=== PATIENT | female | born 1995 | race Caucasian/White ===

== ENCOUNTER 2020-12-13 07:17 | Emergency (ER) | payer OTHER, SELFPAY ==
--- NOTE | ~2020-12-13 | XR_ITS ---
XR chest 1V portable DATE: 12/13/2020 07:44 INDICATION: Shortness of breath, tachycardia TECHNIQUE: Portable AP chest on 12/13/2020 at 0743 hours COMPARISON: 11/28/2015 PA chest FINDINGS: Normal heart size. No hilar or mediastinal enlargement. No pulmonary infiltrate or consolidation, pleural effusion or pulmonary vascular congestion or pneumo thorax. Included skeletal structures are unremarkable. IMPRESSION: No active cardiopulmonary disease Reviewed, dictated and finalized at location A.
[2020-12-13 07:26] VITALS: BP 116/84; PULSE 76; RESP 24; TEMP 36.7; O2SAT 100
--- NOTE | 2020-12-13 07:35 | ECG_ITS ---
Measurements Intervals [place] Rate: 81 P: 52 MT: 153 QRS: 61 QRSD: 94 T: 46 QT: 365 QTc: 425 Interpretive Statements SINUS RHYTHM BASELINE ARTIFACT- II, III, AVR, AVF, V1-V6 NORMAL ECG Electronically Signed On 12-13-2020 8:13:47 CDT by Kris Montiel D.O.
[2020-12-13 08:06] LABS: Basophils Percent Auto 0.4 % (0.2-1.2); Eosinophils Absolute Auto 0.1 K/mm3 (0-0.3); Eosinophils Percent Auto 0.9 % (0-4.4); Hematocrit 40.3 % (37.0-47.0); Hemoglobin 13.4 g/dL (12.0-15.0); Immature Granulocyte Absolute 0.02 K/mm3 (0.00-0.031); Immature Granulocyte Percent A 0.4 % (0-0.5); Lymphocytes Absolute Auto 1.97 K/mm3 (0.9-3.2); Lymphocytes Percent Auto 35.8 % (18.3-44.2); Mean Corpuscular HGB Conc 33.3 g/dl (32-36); Mean Corpuscular Hemoglobin 32.1 pg (26-34); Mean Corpuscular Volume 96.4 fl (80-100); Mean Platelet Volume 10.3 fl (7.4-10.4); Monocytes Absolute Auto 0.4 K/mm3 (0.1-0.6); Monocytes Percent Auto 7.6 % (2.6-8.5); Neutrophils Percent Auto 54.9 % (45.5-73.1); Platelet Count Result 248 k/mm3 (150-375); Red Blood Count 4.18 M/mm3 (4.2-5.4); White Blood Count 5.5 K/mm3 (4.5-10.0)
[2020-12-13 08:15] LABS: Alanine Aminotransferase 17 U/L (4-35); Alkaline Phosphatase 72 U/L (38-126); Anion Gap 12 mmol/L (8-16); Aspartate Amino Transferase 28 U/L (14-36); Bilirubin,Total 0.6 mg/dL (0.2-1.3); Blood Urea Nitrogen 10 mg/dL (7-17); Calcium 9.8 mg/dL (8.4-10.2); Carbon Dioxide 25 mmol/L (22-30); Chloride 103 mmol/L (98-107); Estimated CRCL calculation 77 ml/min; Estimated Glomerular Filt Rate > 60; Glucose 88 mg/dL (65-105); Potassium 3.2 mmol/L (3.4-5.0); Sodium 140 mmol/L (137-145)
[2020-12-13 08:27] VITALS: BP 107/96; PULSE 70; RESP 19; O2SAT 99
[2020-12-13 08:27] LABS: Troponin I < 0.012 ng/mL (0.000-0.034)
[2020-12-13 08:44] LABS: D Dimer 0.24 ug/mL (<0.48)
--- NOTE | 2020-12-13 08:48 | ED.ARRPALP ---
HPI - Arrhythmia/Palpitations General Chief Complaint: Arrhythmia/Palpitations Stated Complaint: SOB Time Seen by Provider: 12/13/20 07:33 Source: patient and RN notes reviewed Mode of arrival: ambulatory Limitations: no limitations History of Present Illness HPI narrative: Patient is 25 years old white female presented to the ED with palpitation, her iWatch showed heart rates running 130-140 at 5:15 AM associated with intermittent shortness of breath. Patient could not sleep last night. On arrival to the emergency room the above symptoms resolved, currently is asymptomatic. Patient on contraceptive pills. Patient does not smoke, drinks occasionally, does not use drugs. Patient reported quite a bit of stress lately. Related Data Home Medications Medication Instructions Recorded Confirmed albuterol sulfate 90 mcg/actuation 1 inhalation INHALATION Q4H 06/20/19 aerosol inhaler Allergies Allergy/AdvReac Type Severity Reaction Status Date / Time Sulfa (Sulfonamide Allergy Unknown Hives Verified 12/13/20 07:35 Antibiotics) Review of Systems Review of Systems: Narrative: CONSTITUTIONAL: Denies fever, chills, or sweats. EYES: Denies visual changes, redness, or discharge. ENT: Denies rhinorrhea, congestion, sore throat, or otalgia. CARDIOVASCULAR: Denies chest pain, palpitations, or edema. RESPIRATORY: Denies cough or dyspnea. GASTROINTESTINAL: Denies abdominal pain, nausea, vomiting, or diarrhea. GENITOURINARY: Denies dysuria or hematuria. SKIN: Denies rash or itching. MUSCULOSKELETAL: Denies back pain, joint pain, or myalgia. NEUROLOGIC: Denies headache, numbness, or weakness. PSYCHIATRIC: Denies anxiety or depression. [facility] Past Medical History Medical History Asthma Surgical History Surgical History History of hernia repair 2017 History of laparoscopic appendectomy 2017 Family History Family History Grandparent Hypertension Family history of elevated blood lipids Family history of cardiovascular disease Social History Social History Smoking status: Never smoker Second hand tobacco smoke exposure: No Alcohol intake: current Gender identity (if verbalized by the patient): Female Exam Narrative: Exam Narrative: General appearance: Well-developed, well-nourished Skin: Normal color Head: Normocephalic, nontraumatic Eyes: Clear conjunctiva ENT: Oropharynx normal, ears normal, nose normal Neck: Supple, nontender Chest and respiratory: Airway patent, no respiratory distress, no accessory muscle use Heart: Regular rate/rhythm Abdomen: Soft, nontender, no organomegaly, quiet bowel sounds Vascular: Normal peripheral pulses, normal capillary refill. Musculoskeletal: Normal range of motion, nontender back Neurologic: Alert and oriented ?3, WEATHER ANCHOR is normal as tested, no gross motor deficit Course Course Emergency Course: Stable Vital Signs Vital signs: Vital Signs Temperature 36.7 C 12/13/20 07:26 Pulse Rate 76 12/13/20 07:26 Respiratory Rate 24 H 12/13/20 07:26 Blood Pressure 116/84 12/13/20 07:26 Pulse Oximetry 100 12/13/20 07:26 Temperature 36.7 C 12/13/20 07:26 Pulse Rate 70 12/13/20 08:27 Respiratory Rate 19 12/13/20 08:27 Blood Pressure 107/96 H 12/13/20 08:27 Pulse Oximetry 99 12/13/20 08:27 MDM - Arrhythmia/Palpitations MDM Narrative Medical decision making narrative: Anxiety-like symptoms is my concern. Differential Diagnosis Differential diagnosis: Likely
[2020-12-13 09:00] VITALS: BP 107/74; PULSE 74; RESP 20; O2SAT 100
== END 2020-12-13 09:02 | disposition home or self-care (01) ==
PROVIDERS: Emergency Provider Emergency Medicine; PCP Family Medicine
DX: F41.9 Anxiety disorder, unspecified (principal); R00.2 Palpitations; J45.909 Unspecified asthma, uncomplicated
CPT/HCPCS: 36415; 71045; 80053; 84484; 85025; 85380; 93005; 99283

== ENCOUNTER 2021-07-04 19:08 | Emergency (ER) | payer OTHER, SELFPAY ==
--- NOTE | ~2021-07-04 | XR_ITS ---
EXAMINATION: XR finger 3rd RT min 2V EXAM DATE: 07/04/2021 19:29 INDICATION: Pain, laceration rt 3rd distal finger , dropped. TECHNIQUE: Right 3rd finger frontal, lateral and oblique projections obtained and reviewed. There is no prior study for comparison. FINDINGS: There are no acute right 3rd finger fractures or dislocations identified. There is no subc utaneous gas. Laceration seen dorsal to the distal phalangeal shaft. There are no radiopaque foreig n bodies. IMPRESSION: Soft tissue laceration. Reviewed, dictated and finalized at location G. ES ASSISTANT IMPRESSION: Soft tissue laceration.
[2021-07-04 19:14] VITALS: BP 123/99; PULSE 73; RESP 16; TEMP 37.1; O2SAT 100
--- NOTE | 2021-07-04 20:09 | ED.GENADULT ---
HPI - General Adult General Chief complaint: Extremity Injury, Upper Stated complaint: Laceration to finger/Right Hand Source: patient Mode of arrival: ambulatory Limitations: no limitations History of Present Illness HPI narrative: Patient presents for evaluation of injury to the third digit of the right hand. She indicates she was at a gym this evening and dropped a weight on the middle finger of her right hand. She now has a laceration to the palmar aspect of the distal phalanx of the third digit of the right hand. Reports some minimal amount of pain in the affected area. Described as throbbing. No paresthesias. No loss of range of motion. Date of last tetanus unknown. She is not diabetic. She does not smoke. No additional complaints or concerns. Related Data Home Medications Medication Instructions Recorded Confirmed albuterol sulfate 90 mcg/actuation 1 inhalation INHALATION Q4H 06/20/19 aerosol inhaler Allergies Allergy/AdvReac Type Severity Reaction Status Date / Time Sulfa (Sulfonamide Allergy Unknown Hives Verified 01/25/21 08:31 Antibiotics) Review of Systems Review of Systems: CONSTITUTIONAL: Denies fever, chills, or sweats. EYES: Denies visual changes, redness, or discharge. ENT: Denies rhinorrhea, congestion, sore throat, or otalgia. CARDIOVASCULAR: Denies chest pain, palpitations, or edema. RESPIRATORY: Denies cough or dyspnea. GASTROINTESTINAL: Denies abdominal pain, nausea, vomiting, or diarrhea. GENITOURINARY: Denies dysuria or hematuria. SKIN: Reports laceration to third digit of right hand MUSCULOSKELETAL: Reports pain in distal phalanx of third digit of right hand NEUROLOGIC: Denies headache, numbness, dizziness, or weakness. PSYCHIATRIC: Denies anxiety or depression. [facility] Past Medical History Medical History Asthma Surgical History Surgical History History of hernia repair 2017 History of laparoscopic appendectomy 2017 Family History Family History Grandparent Hypertension Family history of elevated blood lipids Family history of cardiovascular disease Social History Social History Smoking status: Never smoker Second hand tobacco smoke exposure: No Alcohol intake: current Alcohol use details: social Substance use: never Substance use type: does not use Living arrangements: alone Additional occupation/education comments: RN Gender identity (if verbalized by the patient): Female Sexual Orientation (if Verbalized by the Patient): Straight or Heterosexual Spiritual care concerns: No Exam Narrative: GENERAL: Well-appearing, well-nourished, and in no acute distress. HEAD: Normocephalic, atraumatic. EYES: PERRLA and EOMI. ENT: Nares clear, no rhinorrhea or epistaxis. Mucous membranes moist. Oropharynx without tonsillar hypertrophy exudate or other lesions. Bilateral TMs pearly roldan nonbulging NECK: Supple. No adenopathy or masses. No carotid bruits or JVD CHEST: Clear to auscultation. No respiratory distress. No wheezes rales or rhonchi HEART: Regular rate and rhythm. No murmur heard. Normal peripheral pulses. ABDOMEN: Soft, nontender, nondistended, normal active bowel sounds. EXTREMITIES: Normal range of motion. No edema. Tenderness noted to distal phalanx of third digit of right hand SKIN: Approximately 4 mm linear laceration to the palmar aspect of the distal phalanx of the third digit of the right hand. There is ecchymosis noted to the dorsal aspect of the distal phalanx of the third digit of the right hand.. NEURO: No focal deficits. Alert and oriented x3. PSYCH: Normal mood and affect. Course Course Emergency Course: This is a 25-year-old female who presented following an injury to the [facility]
[2021-07-04] MEDS: TETANUS,DIPHTHERIA,AC PERTUSSIS ADULT (0.5 ML) BOOSTRIX IM (20:19)
[2021-07-04] MEDS: LIDOCAINE HCL 1% LOCAL INJ 20 ML VIAL 10 ML INFILTRATE (20:20)
== END 2021-07-04 20:40 | disposition home or self-care (01) ==
PROVIDERS: Emergency Provider Nurse Practitioner; PCP Family Medicine
DX: S61.212A Laceration without foreign body of right middle finger without damage to nail, initial encounter (principal); W20.8XXA Other cause of strike by thrown, projected or falling object, initial encounter; Z23 Encounter for immunization; J45.909 Unspecified asthma, uncomplicated
CPT/HCPCS: 12001; 73140; 90471; 90715; 99213; G0463

== ENCOUNTER 2022-06-23 09:00 | Outpatient (NON) | payer OTHER, SELFPAY | END 2022-06-23 09:01 | disposition home or self-care (01) | PROVIDERS: PCP Family Medicine; Visit Provider Nurse Practitioner | DX: D48.5 Neoplasm of uncertain behavior of skin (principal) | CPT/HCPCS: 88305 ==

== ENCOUNTER 2023-07-22 10:14 | Outpatient (CLI) | payer OTHER, SELFPAY ==
[2023-07-22 10:40] LABS: Hematocrit 40.9 % (37.0-47.0); Hemoglobin 13.6 g/dL (12.0-15.0); Mean Corpuscular HGB Conc 33.3 g/dl (32-36); Mean Corpuscular Hemoglobin 31.8 pg (26-34); Mean Corpuscular Volume 95.6 fl (80-100); Mean Platelet Volume 10.1 fl (7.4-10.4); Platelet Count Result 290 k/mm3 (150-375); Red Blood Count 4.28 M/mm3 (4.2-5.4); Red Cell Distribution Width 12.4 % (11.5-14.5); White Blood Count 7.1 K/mm3 (4.5-10.0)
[2023-07-22 11:02] LABS: LDL Cholesterol Direct 89 mg/dL
[2023-07-22 11:08] LABS: Alanine Aminotransferase 26 U/L (6-35); Albumin Level 4.6 g/dL (3.5-5.1); Alkaline Phosphatase 73 U/L (38-126); Anion Gap 4 mmol/L (8-16); Aspartate Amino Transferase 72 U/L (14-36); Bilirubin,Total 1.1 mg/dL (0.2-1.3); Blood Urea Nitrogen 10 mg/dL (7-17); Calcium 9.6 mg/dL (8.4-10.2); Carbon Dioxide 28 mmol/L (22-30); Chloride 105 mmol/L (98-107); Cholesterol 228 mg/dL (0-200); Estimated Glomerular Filt Rate > 60; Glucose 100 mg/dL (65-110); HDL Direct 121 mg/dL; Potassium 3.8 mmol/L (3.4-5.0); Sodium 137 mmol/L (137-145); Triglycerides 50 mg/dL (<150)
[2023-07-22 11:11] LABS: Free T4 Free Thyroxine 0.93 ng/mL (0.78-2.19)
== END 2023-07-22 10:15 | disposition home or self-care (01) ==
LOC: ANHLAB 10:20
PROVIDERS: PCP Family Medicine; Visit Provider Physician Assistant
DX: D64.9 Anemia, unspecified (principal); Z13.220 Encounter for screening for lipoid disorders; R53.83 Other fatigue; Z13.1 Encounter for screening for diabetes mellitus
CPT/HCPCS: 36415; 80053; 80061; 84439; 84443; 85027

== ENCOUNTER 2024-07-09 08:10 | Emergency (ER) | payer OTHER, SELFPAY ==
--- NOTE | ~2024-07-09 | XR_ITS ---
EXAMINATION: XR chest 2V DATE: 07/09/2024 08:44 INDICATION: Cough. TECHNIQUE: Frontal and lateral views of the chest were obtained. COMPARISON: Chest 2 view 12/13/2020 FINDINGS: There is no pneumonia, pleural effusion, or pneumothorax. The heart size is normal. IMPRESSION: 1. No acute cardiopulmonary disease. Reviewed, dictated and finalized at location A. [employer]
--- OUTSIDE RECORDS SUMMARY | 2024-07-09 08:15 | XMS_ITS | Clinical Summary ---
Author Organization [facility] Address [address] [place] [id number] Phone Care Team Providers Care Petroleum Sampler Name Role Phone Provider, None Primary Care Provider Unavailabl e Allergies Active Allergy Reactions Criticality Noted Date Comments Sulfa Antibiotics Rash 09/20/2018 Medications Acetaminophen (TYLENOL PO) Take by mouth. Ac tive ondansetron (ZOFRAN) 4 MG Tablet Take 1 Tab by mouth every 8 hours as needed for Nausea - 2nd line. 15 Tab 9 Active Additional Information Patient not taking.Reported on 04/06/2019 Active Problems No known active problems Social History Tobacco Use Types Packs/Day Years Used Date Smoking Tobacco: Never Smokeless Tobacco: Never Comments No Sex and Gender Information Value Date Recorded Sex Assigned at Not on file Legal Sex Female 11:11 PM CDT Gender Identity Not on file Sexual Orientation Not on file Last Filed Vital Signs Vital Sign Reading Time Taken Comments Blood Pressure 106/60 04/06/2019 7:27 PM MACHINE MOLDER Pulse 61 04/06/2019 7:27 PM MACHINE MOLDER Temperature 36.7 C (98 F) 04/06/2019 7:27 PM MACHINE MOLDER Respiratory Rate 16 04/06/2019 7:27 PM MACHINE MOLDER Oxygen Saturation 98% 04/06/2019 7:27 PM MACHINE MOLDER Inhaled Oxygen Concentration - - Weight 70.3 kg (155 lb) 04/06/2019 7:27 PM MACHINE MOLDER Height 167.6 cm (5' 6 ) 09/20/2018 9:13 AM CDT Body Mass Index 25.02 09/20/2018 9:13 AM CDT Plan of Treatment Health Maintenance Due Date Last Done Comments Hepatitis C Virus (HCV) Screening 1993 TdaP Immunization 1993 Hepatitis B Immunization (1 of 3 - 19+ 3-dose series) 2012 Pap Smear 2014 Cervical Cancer Screening (CCS) 2023 HPV/Cotest 2023 Influenza Immunization (#1) 2024 SARS-COV-2 Immunization (2023- season) 2024 05/07/2021, 04/16/2021 Respiratory Syncytial Virus (RSV) Immunization (Adult) (1 - 1-dose 75+ series) 2068 Meningococcal Immunization (ACWY) Aged Out No longer eligible b ased on patient's age to complete this topic Pneumococcal Immunization Combined Aged Out No longer eligible b ased on patient's age to complete this topic Rotavirus Immunization Aged Out No lo nger eligible based on patient's age to complete this topic Insurance Care Teams Petroleum Sampler Relationship Specialty Start Date End Date Provider, None [place] PCP - General 09/20/18
--- OUTSIDE RECORDS SUMMARY | 2024-07-09 08:15 | XMS_ITS | Clinical Summary ---
Author Organization [facility] Address [address] [place] [address] Care Team Providers Care System Trainer Name Role Phone Unavailable Primary Care Provider Unavailabl e Source Comments [facility],non-owned Affiliates and Associated Physician Practices is amultiple site organization consisting of ambulatory clinics and hospital sitesin [place], [place], [place] and [place]. This disclosure is being madepursuant to the Care Everywhere program and may not contain all information available regarding this patient. Last updated 18.[facility] Allergies Active Allergy Reactions Criticality Noted Date Comments Sulfa Drugs 04/19/2017 Medications * Be aware that medications may not be up to date on this document. Alwaysverify current medications with the patient. Medication Sig Dispensed Refills Start Date End Date Status albuterol HFA (PROVENTIL HFA) 108 (90 BASE) MCG/ACT inhaler Inhale 2 Puffs by mouth every 6 hours as needed. 3 Inhaler 1 07/02/2012 Active sertraline (ZOLOFT) 50 MG tablet Take 50 mg by mouth once daily Active NORETHIN HAILEY-ETH ESTRAD-FE PO Active Active Problems Problem Noted Date Diagnosed Date IBS (irritable bowel syndrome) 06/24/2010 Exercise-induced asthma 06/24/2010 Immunizations Name Administration Dates Next Due DTaP VACCINE IM (6wk-6yrs) 08/27/1998,,01/25/1994,1993, 1993 HEP A PEDS 2 DOSE 09/09/2010,02/03/2010 HEP B VACCINE, PED/ADOL 01/25/1994,1993, HIB-PRP-T 4 DOSE 08/27/1998,01/24/1995, 4,1993 Human Papilloma Virus Vaccine 09/09/2010, 010,02/13/2010 MENINGOCOCCAL CONJUGATE (MCV4P) 12/18/2011 MMR 08/27/1998,10/30/1994 TDAP (7yrs+) 12/06/2007 Family History Medical History Relation Name Comments Asthma Father Relation Name Status Comments Father Social History Tobacco Use Types Packs/Day Years Used Date Smoking Tobacco: Never Smokeless Tobacco: Never Alcohol Use Standard Drinks/Week Comments No 0 (1 standard drink = 0.6 oz pur e alcohol) Sex and Gender Information Value Date Recorded Sex Assigned at Not on file Gender Identity Not on file Sexual Orientation Not on file Last Filed Vital Signs Vital Sign Reading Time Taken Comments Blood Pressure 116/64 03/28/2021 4:48 PM CDT Pulse 74 03/28/2021 4:48 PM CDT Temperature 36.6 C (97.9 F) 03/28/2021 4:48 PM CDT Respiratory Rate 16 03/28/2021 4:48 PM CDT Oxygen Saturation 98% 03/28/2021 4:48 PM CDT Inhaled Oxygen Concentration - - Weight 70.3 kg (155 lb) 08/25/2020 2:03 PM CDT Height 167.6 cm (5' 6 ) 08/25/2020 2:03 PM CDT Body Mass Index 25.02 08/25/2020 2:03 PM CDT Plan of Treatment Health Maintenance Due Date Last Done Comments PAP SMEAR 1993 HIV SCREENING 2008 HEPATITIS C SCREENING 07/25/2011 PNEUMOCOCCAL VACCINE (1 of 2 - PCV) 2012 DTAP/TDAP/TD VACCINES (7 - Td or Tdap) 12/05/2017 12/06/2007, 08/27/1998, 01/24/1995, Additional history exists COVID-19 VACCINE (1 - 2023- season) 2024 INFLUENZA VACCINE (#1) 01/31/2024201 5, 02/14/2014, 06/01/2013 DEPRESSION SCREENING 06/01/2024 ZOSTER VACCINE (1 of 2) 2043 HEPATITIS B VACCINE Completed 01/25/1994, 1993, 1993 HIB VACCINE Completed 08/27/1998, 12/31, 1993, Additional history exists HPV VACCINE Completed 09/09/2010, 04/02, 02/13/2010 MENINGOCOCCAL VACCINE Completed 12/18/2011 MENINGOCOCCAL (Group B) VACCINE Aged Out No longer eligible based on patient's age to complete this topic KEELEY CHRISTENSEN Personal/Famil y 1995 [address] [place] [address]
--- OUTSIDE RECORDS SUMMARY | 2024-07-09 08:15 | XMS_ITS | Data Portability ---
Author Organization [place] mindiARNIE_[facility] Address [address] [place] [id number] Assessment No assessment recorded. Plan of Treatment Reminders Order Date Submit Date Provider Last Modified By Organization Details Last Modified Time Details Appointments None recorded. Lab influenza virus A + B and SARS CoV 2, QL, UMA+probe, respiratory specimen 2021 [email or web address] In-Office Order, Internal Use Only DO Not Attach Compendium DO Not Attach Compendium, Do Not Delete/merge, [id number] 10:08:25 Referral None recorded. Procedures None recorded. Surgeries None recorded. Imaging None recorded. Medication Orders fluticasone propionate 50 mcg/actuati on nasal spray,suspe nsion [address] [facility]/Pharmacy #[id number], [address] [place], [address], 10:13:18 benzonatate 200 mg capsule [address] [facility]/Pharmacy #[id number], [address] [place], [address], 10:13:18 Patient TargetsNo targets recorded. Patient Instructions Encounter Date Encounter Id Patient Instructions Last Modified By Organization Details Last Modified Time 04/03/2022 [id number] viral respirator y infection: care instructions tami Not available 04/03/2022 10:13:15 Negative Flu, Covid Like we discussed, I do believe that you are likely experiencing a viral illness. At this time, I believe supportive treatments will help alleviate your symptoms. Use humidifier as needed for any nasal congestion. Keep head of bed elevated to decrease congestion at night. Use Benzonatate for sore throat. Gargle with warm salt water to help kill bacteria in the back of your throat. Apply Vicks Vapor Rub on your chest and bottoms of feet to alleviate cough. Drink lots of fluids, including water, diluted Gatorade to stay hydrated. If symptoms persist or worsen, please contact us your primary care doctor for further evaluation. Thanks. tami Not available 04/03/2022 10:07:56 Call if any questions, concerns, or change/worsening in symptoms. Prachi verbalized understanding of all information discussed today and is agreeable to the treatment plan. tami Not available 04/03/2022 10:07:02 Reason for Referral None Reported. Results Created Date Observation Date Name Description Value Unit Range Abnormal Flag Note LastModifiedBy Organization Detail LastModifiedTime 04/03/20 22 04/03/2022 influ bessy virus A + B and SARS CoV 2, QL, UMA+p robe, respi rator y speci men Flu A (reference range = negative) negati ve Not Available In-Office Order Internal Use Only DO Not Attach Compendium DO Not Attach Compendium, Do Not Delete/merge, [id number] 04/03/2022 09:33:38 04/03/20 22 04/03/2022 influ bessy virus A + B and SARS CoV 2, QL, UMA+p robe, respi rator y speci men Flu B (reference range = negative) negati ve Not Available In-Office Order Internal Use Only DO Not Attach Compendium DO Not Attach Compendium, Do Not Delete/merge, [id number] 04/03/2022 09:33:38 04/03/20 22 04/03/2022 influ bessy virus A + B and SARS CoV 2, QL, UMA+p robe, respi rator y speci men SARS (reference range = negative) negati ve Not Available In-Office Order Internal Use Only DO Not Attach Compendium DO Not Attach Compendium, Do Not Delete/merge, [id number] 04/03/2022 09:33:38 04/03/20 22 04/03/2022 influ bessy virus A + B and SARS CoV 2, QL, UMA+p robe, respi rator y speci men Control (reference range = valid) Valid Not Available In-Off ice Order Internal Use Only DO Not Attach Compendium DO Not Attach Compendium, Do Not Delete/merge, [id number] 04/03/2022 09:33:38 04/03/20 22 04/03/2022 influ bessy virus A + B and SARS CoV 2, QL, UMA+p robe, respi rator y speci men Disclaimer Test perfor med using [employer] techno logy for antige n detect ion under FDA Not Available In-Office Order Internal Use Only DO Not Attach Compendium DO Not Attach Compendium, Do Not Delete/merge, [id number] 04/03/2022 09:33:38 04/03/20 22 04/03/2022 influ bessy virus A + B and SARS CoV 2, QL, UMA+p robe, respi rator y speci men Disclaimer cont Emerge ncy Use Author donna brock (EUA) Not Available In-Office Order Internal Use Only DO Not Attach Compendium DO Not Attach Compendium, Do Not Delete/merge, 04/03/2022 09:33:38 04/03/20 22 04/03/2022 influ bessy virus A + B and SARS CoV 2, QL, UMA+p robe, respi rator y speci men Fact Sheet for Providers https: //www. GrupHediye/s ites/d poLightault /files /produ ct/doc uments /FS203 [email or web address] 00.pdf Not Available In-Office Order Internal Use Only DO Not Attach Compendium DO Not Attach Compendium, Do Not Delete/merge, 04/03/2022 09:33:38 04/03/20 22 04/03/2022 influ bessy virus A + B and SARS CoV 2, QL, UMA+p robe, respi rator y speci men Fact Sheet for Patients https: //www. GrupHediye/s ites/d efault /files /produ ct/doc uments /FS203 [id number] [email or web address].pd f Not Available In-Office Order Internal Use Only DO Not Attach Compendium DO Not Attach Compendium, Do Not Delete/merge, [id number] 04/03/2022 09:33:38 Result Notes None recorded. Procedures Surgical History Date Name Laterality Status Provider Name and Address Organization Details Recorded Time Appendectomy completed Tayla Sterling [employer] [place] [facility] 04/03/2022 09:33:21 hernia repair completed Tayla Abner [employer] [place] [facility] 04/03/2022 09:33:28 Imaging Results None recorded. Procedure Notes None recorded. Medical Equipment None Reported. Allergies Allergen ID Allergen Name Allergen Category Reaction Reaction Severity Criticality Documentation Date Start Date Code Code System Note Provider Name and Address Organization Details Recorded Time [id number] Substance with sulfonami de structure and antibacte rial mechanism of action (substanc e) medicatio n Not available Not available Not available 04/03/2022 66400 [id number] SNOMED Tayla Castleber ry [employer] [place], [place] [facility] 2 09:32:05 Medications Name Sig Start Date Stop Date Status Note LastModified by Organization Details LastModified Time benzonatate 200 mg capsule Take 1 capsule 3 times a day by oral route as needed for 10 days. 2021 active Not Available Not Available Not Avai lable Zoloft 50 mg tablet Take 1 tablet every day by oral route. active Not Available Not Available No t Available fluticasone propionate 50 mcg/actuatio n nasal spray,suspen ashu [place] 1 spray every day by intranasal route as directed. 2021 active Not Available Not Available Not Avai lable Vitals Date Recorded Body weight Body mass index (BMI) Body height Body temperature Respiratory rate Oxygen saturation Oxygen saturation in Arterial blood by Pulse oximetry Heart rate Systolic blood pressure Diastolic blood pressure Provider Name and Address Organization Details Last Updated DateTime 2 44478.4 g 27.7 kg/m2 167.64 cm 98.1 [degF] 16 /min 97 % 97 % 82 /min 108 mm[Hg] 76 mm[Hg] Tayla Castleber ry [employer] [place] [facility] 2 09:29:45 Social History Question Answer Notes LastModified by Organizat ion Details LastModified Time Tobacco Smoking Status Never Smoker Tayla Sterling [employer] [place], [place] [facility][1] 04/03/2022 09:33:06 Have You Had A Fever And/or Symptoms Of A Lower Respiratory Illness (cough, Difficulty Breathing, Etc)? Yes [email or web address] Information not available 04/03/2022 Have You Had Any Of These Symptoms: Chills ,Headache, Fatigue, Muscle Or Body Aches , Sore Throat, New Loss Of Taste Or Smell, Nausea Or Vomiting, Or Diarrhea? Yes [email or web address] Information not available 04/03/2022 Have You Had A COVID-19 Vaccine In The Last 7 Days? No [email or web address] Information not available 04/03/2022 (If Yes To Covid Vaccine)- Which Vaccine? Pfizer Information not available 04/03/2022 In The Past 10 Days, Have You Been Told You May Have COVID-19 Or Have Been Tested For COVID-19? No [email or web address] Information not available 04/03/2022 What Was The Date Of Your Most Recent Tobacco Screening? 04/03/2022 [id number] Information not available 04/05/2022 Do You Or Have You Ever Used Any Other Forms Of Tobacco Or Nicotine? No Information not available 04/03/2022 Sex: Unknown Functional Status None recorded. Mental Status None recorded. Family History Relationship Description Onset Age of this Age Resolved Age Notes LastModified by Organization Details LastModified Time Father No current problems or disability Not available 1 06/03/2021 09:32:44 Mother No current problems or disability Not available 06/03/2021 09:32:44 Medical History Condition Response asthma Y Gynecological HistoryNo gynecological history recorded. Obstetrics History GPAL:G 0 P 0 0 0 0 Past Encounters Encounter ID Performer Location Encounter Start Date Encounter Closed Date Diagnosis/Indication Diagnosis SNOMED-CT Code Diagnosis ICD10 Code Diagnosis Note [id number] Cecile Polanco STAFF RADIATION THERAPIST [facility] [address], [place], [facility] [address] [place] [address] 04/03/2022 09:19:05 04/03/2022 10:15:55 Fever 245679425 R50.9 Viral uppe r respiratory tract infection 483422907 J06.9 Health Concerns Section Related Observation LastModified by Organization Detai ls LastModified Time None Recorded Concern Status LastModified by Organization Details LastModified Time None Recorded Advance Directives Directive None Recorded Payers Encounter Date Sequence Insurance Name Policy Number Policy Graham Covered Member ID Graham Member ID Guarantor Name 04/03/2022 1 [employer]ARELISTMIL (PPO) [id number] Figueroa yemi Bennie [id number] Prachi Avery Notes Date Note Type Note Provider Name and Address Organization Details Recorded Time 04/03/2022 text/html 26-year-old female presents to the walk-in clinic for a 2-day history of sore throat, headache, fever, diarrhea, body aches, chills and ear pain. Denies any other symptoms. 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 No other issues or concerns were addressed at this time. Cecile Polanco STAFF RADIATION THERAPIST [address], [address], [place], [address], [place] [facility] 04/03/2022 10:17:19 OBGyn Episode No OBEpisode recorded.
--- OUTSIDE RECORDS SUMMARY | 2024-07-09 08:15 | XMS_ITS | Patient Health Summary ---
Author Organization [facility] Address [address] [place] [address] Care Team Providers Care Commissioner Of Conciliation Name Role Phone Unavailable Primary Care Provider Unavailabl e Note from [facility],non-owned Affiliates and Associated Physician Practices is amultiple site organization consisting of ambulatory clinics and hospital sitesin [place], [place], [place] and [place]. This disclosure is being madepursuant to the Care Everywhere program and may not contain all information available regarding this patient. Last updated 18.[facility] Allergies * Sulfa Drugs Medications * Be aware that medications may not be up to date on this document. Alwaysverify current medications with the patient. * albuterol HFA (PROVENTIL HFA) 108 (90 BASE) MCG/ACT inhaler(Started 07/02/2012) Inhale 2 Puffs by mouth every 6 hours as needed. 1 refill left * sertraline (ZOLOFT) 50 MG tablet Take 50 mg by mouth once daily * NORETHIN HAILEY-ETH ESTRAD-FE PO Active Problems Problem Noted Date Diagnosed Date IBS (irritable bowel syndrome) 06/24/2010 Exercise-induced asthma 06/24/2010 Immunizations * DTaP VACCINE IM (6wk-6yrs)(Given 08/27/1998, 01/24/1995, 01/25/1994, 1993, 1993) * HEP A PEDS 2 DOSE(Given 09/09/2010, 02/03/2010) * HEP B VACCINE, PED/ADOL(Given 01/25/1994, 1993, 1993) * HIB-PRP-T 4 DOSE(Given 08/27/1998, 01/24/1995, 1993, 1993) * Human Papilloma Virus Vaccine(Given 09/09/2010, 04/29/2010, 02/13/2010) * MENINGOCOCCAL CONJUGATE (MCV4P)(Given 12/18/2011) * MMR(Given 08/27/1998, 10/30/1994) * TDAP (7yrs+)(Given 12/06/2007) Social History Tobacco Use Types Packs/Day Years [...] Mass Index 25.02 08/25/2020 2:03 PM CDT Procedures * STREP A SCREEN - POINT OF CARE (AMB) STL(Performed 03/28/2021) Performed for Acute nasopharyngitis (common cold) * CULTURE URINE(Performed 08/25/2020) Performed for Acute cystitis with hematuria * URINALYSIS AUTO - POINT OF CARE (AMB) STL(Performed 08/25/2020) Performed for Acute cystitis with hematuria * INFLUENZA A+B - POINT OF CARE (AMB)(Performed 06/03/2019) Performed for Viral upper respiratory tract infection * STREP A SCREEN - POINT OF CARE (AMB) STL(Performed 09/29/2018) Performed for Acute pharyngitis, unspecified etiology * CULTURE URINE(Performed 04/19/2017) Performed for Dysuria * URINALYSIS AUTO - POINT OF CARE (AMB) STL(Performed 04/19/2017) Performed for Dysuria * URINALYSIS AUTO - POINT OF CARE (AMB) STL(Performed 06/14/2016) Performed for Acute cystitis without hematuria * SKIN TEST PPD - POINT OF CARE(Performed 11/13/2011) Performed for Need for tuberculosis vaccination, Sports physical * CULTURE STREP GROUP A(Performed 08/27/2010) Performed for Sore throat * STREP A SCREEN - POINT OF CARE (AMB)(Performed 08/27/2010) Performed for Sore throat Results * STREP A SCREEN - POINT OF CARE (AMB) STL (03/28/2021 4:54 PM CDT) Only the most recent of2 resultswithin the time period is included. [facility] Strep A Rapid POCT Negative Negative [facility] Strep A Internal Control Present [facility] Lot # [id number] [facility] Expiration Date 09/28/21 [facility] Throat ENTIRE THROAT (SURFACE REGION OF NECK) / Unknown 03/28/2021 4:54 PM CDT Halina Limon Benton PSYCH COORDINATOR-POWER SCREWDRIVER OPERATOR LAB - POINT OF CA RE ORDERABLES [facility] [address] [phone] * (ABNORMAL) CULTURE URINE (08/25/2020 2:13 PM CDT) Only the most recent of2 resultswithin the time period is included. [facility] Urine Culture Routine Final report(A) [facility] ACCOUNT BILL Result 1 Escherichia coli(A) [facility] ACCOUNT BILL Comment: 10,000-25,000 colony forming units per mL Cefazolin <=4 ug/mL Cefazolin with an KORTNEY <=16 predicts susceptibility to the oral agents cefaclor, cefdinir, cefpodoxime, cefprozil, cefuroxime, cephalexin, and loracarbef when used for therapy of uncomplicated urinary tract infections due to E. coli, Klebsiella pneumoniae, and Proteus mirabilis. Result 2 [facility] ACCOUNT BILL Comment: Mixed urogenital gracie 10,000-25,000 colony forming units per mL Antimicrobial Susceptibility [facility] ACCOUNT BILL Comment: S = Susceptible; I = Intermediate; R = Resistant P = Positive; N = Negative MICS are expressed in micrograms per mL Antibiotic RSLT#1 RSLT#2 RSLT#3 RSLT#4 Amoxicillin/Clavulanic Acid S Ampicillin S Cefepime S Ceftriaxone S Cefuroxime S Ciprofloxacin S Ertapenem S Gentamicin S Imipenem S Levofloxacin S Meropenem S Nitrofurantoin S Piperacillin/Tazobactam S Tetracycline S Tobramycin S Trimethoprim/Sulfa S Urine URINE SPECIMEN OBTAINED BY CLEAN CATCH PROCEDURE / Unknown 08/25/2020 2:13 PM CDT 08/27/2020 Narrative Resulting Agency Comment [facility] [address] [facility] [phone] Junior Begum PSYCH COORDINATOR-POWER SCREWDRIVER OPERATOR LAB - MICRO BIOLOGY ORDERABLES [facility] ACCOUNT BILL [address] [place] [address] * URINALYSIS AUTO - POINT OF CARE (AMB) STL (08/25/2020 2:09 PM CDT) Only the most recent of3 resultswithin the time period is included. Clarity UA POCT cloudy [facility] Color UA POCT dark yellow [facility] Leukocyte UA 70+ Negative [facility] [place] Nitrite UA POCT negative Negative [facility] [place] Urobilinogen UA 0.2 0.1 - 1.0 [facility] Protein UA POCT 15+ Negative [facility] pH UA 6.5 5.0 - 8.0 pH units [facility] Blood UA 5-10 Negative [facility] Specific [place] UA POCT 1.030 1.002 - 1.030 [facility] Ketone UA negative Negative [facility] Bilirubin UA POCT negative Negative [facility] Glucose UA negative Negative [facility] Expiration Date 01-06-2022 [facility] Lot # [id number] [facility] QC Verified Yes Yes [facility] Urine URINE / Unknown 08/25/2020 2 :09 PM CDT Junior Begum PSYCH COORDINATOR-POWER SCREWDRIVER OPERATOR LAB - POINT OF CARE ORDERABLES [facility] [place] [address] [phone] * INFLUENZA A+B - POINT OF CARE (AMB) (06/03/2019 11:29 AM REGULATORY SERVICES CONSULTANT) Influenza A Antigen Rapid Negative Negative Influenza B Antigen Rapid Negative Negative Influenza Internal Control present NEGATIVE - POSITIVE Influenza Lot Number [id number] Influenza Expiration Date 09/08/20 Other NASOPHARYNGEAL SWAB / Unknown 06/03/2019 11:29 AM REGULATORY SERVICES CONSULTANT Chary Hawthorne PSYCH COORDINATOR-POWER SCREWDRIVER OPERATOR LAB - POINT OF CARE ORDERABLES * SKIN TEST PPD - POINT OF CARE (11/13/2011 3:07 PM CDT) PPD Negative MISCELLANEOUS SAMPLE S / Unknown Catrachita Hanks MD LAB - POINT OF CARE ORDERABLES * CULTURE STREP GROUP A (08/27/2010 9:00 AM CDT) Beta-Strep Culture, Group A Only Negative [facility] ACCOUNT BILL Comment:Negative ENTIRE THROAT (SURFACE REGION OF NECK) / Unknown 08/27/2010 9:00 AM CDT 08/28/2010 9:35 PM CDT Narrative Resulting Agency Comment [facility] [address] [phone] Catrachita Hanks MD LAB - MICROBIOLOGY O RDERABLES [facility] ACCOUNT BILL * STREP A SCREEN - POINT OF CARE (AMB) (08/27/2010 8:52 AM CDT) Strep A Rapid POCT negative NEGATIVE - POSITIVE Strep A Internal Control NEGATIVE - POSITIVE ENTIRE THROAT (SURFACE REGION OF NECK) / Unknown Catrachita Hanks MD LAB - POINT OF CARE ORDERABLES
--- OUTSIDE RECORDS SUMMARY | 2024-07-09 08:15 | XMS_ITS | Referral Summary ---
Author Organization [facility] Address [address] [place] [address] Care Team Providers Care Livestock Judging Coach Name Role Phone Unavailable Primary Care Provider Unavailabl e Source Comments [facility],non-owned Affiliates and Associated Physician Practices is amultiple site organization consisting of ambulatory clinics and hospital sitesin [place], [place], [place] and [place]. This disclosure is being madepursuant to the Care Everywhere program and may not contain all information available regarding this patient. Last updated 18.[facility] Allergies Active Allergy Reactions Criticality Noted Date [...] (MCV4P) 12/18/2011 MMR 08/27/1998,10/30/1994 TDAP (7yrs+) 12/06/2007 Social History Tobacco Use Types Packs/Day Years [...] 08/25/2020 2:03 PM CDT Plan of Treatment Not on file [place] [address] Prachi Christensen Personal/Famil y Self 1995 [address] [place] [address] KEELEY CHRISTENSEN Personal/Famil y 1995 [address] [place] [address]
--- OUTSIDE RECORDS SUMMARY | 2024-07-09 08:15 | XMS_ITS | Clinical Summary ---
Author Organization [facility] Address [address] [place] [address] Care Team Providers Care Software Engineer Web Services Name Role Phone Brenda Allen NP Primary Care Provider +1- [phone] Allergies Active Allergy Reactions Criticality Noted Date Comments Sulfa (Sulfonamide Antibiotics) Rash Medium 09/2021 Medications albuterol HFA (PROVENTIL HFA,VENTOLIN HFA) 90 mcg/actuation inhaler INHALE 2 PUFF BY INHALATION ROUTE EVERY 4 - 6 HOURS NEEDED 3 1 4 Active Additional Information Patient not taking.Reported on 04/05/2022 levoFLOXacin (LEVAQUIN) 500 mg tablet take 1 tablet by oral route every 24 hours 10 0 5 Active Additional Information Patient not taking.Reported on 04/05/2022 levonorgestrel- ethinyl estrad (ORSYTHIA) 0.1-20 mg-mcg per tablet TAKE 1 TABLET DAILY 3 2 4 Active Additional Information Patient not taking.Reported on 04/05/2022 sertraline (ZOLOFT) 50 mg tablet Take by mouth nightly 2 Active Active Problems Problem Noted Date Diagnosed Date Exposure to sexually transmitted disease (STD) 0 07/12/2014 Overview (09/04/2016): Exposure to STD Irregular menstrual cycle 07/12/2014 Overview (09/04/2016): Irregular periods Irritable bowel syndrome 10/15/2013 Overview (09/05/2016): IBS (irritable bowel syndrome) Immunizations Name Administration Dates Next Due Influenza, Trivalent, IM (MDV) 02/12/2015,2013,06/01/2013 Surgical History Surgery Date Site/Laterality Comments DE APPENDECTOMY Appendectomy - (Added by GUS Mccormick) Medical History Medical History Date Comments Hx Other Medical IBS Asthma Asthma Personal history of other di seases of the digestive system History of appendicitis - (A dded by GUS Mccormick) Family History Medical History Relation Name Comments Other Father 2 Alive and well; Other Mother 2 Alive and well; Relation Name Status Comments Father 1 Alive Father 2 Mother 1 Alive Mother 2 Social History Tobacco Use Types Packs/Day Years Used Date Smoking Tobacco: Never Alcohol Use Standard Drinks/Week Comments No 0 (1 standard drink = 0.6 oz pur e alcohol) Comments Unknown Sex and Gender Information Value Date Recorded Sex Assigned at Not on file 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 Gender Identity Not on file Sexual Orientation Not on file Obstetrics History Last Filed Vital Signs Vital Sign Reading Time Taken Comments Blood Pressure 102/70 04/05/2022 1:14 PM CDT Pulse 90 04/05/2022 1:14 PM CDT Temperature 36.7 C (98 F) 04/05/2022 1:14 PM CDT Respiratory Rate 16 04/05/2022 1:14 PM CDT Oxygen Saturation 97% 04/05/2022 1:14 PM CDT Inhaled Oxygen Concentration - - Weight 77.6 kg (171 lb) 04/05/2022 1:14 PM CDT Height 170.2 cm (5' 7 ) 04/05/2022 1:14 PM CDT Body Mass Index 26.78 04/05/2022 1:14 PM CDT Plan of Treatment Health Maintenance Due Date Last Done Comments Cervical Cancer Screening 1993 Depression Screening 1993 Hepatitis C Screening 1993 Pneumococcal vaccine <65 (1 of 2 - PCV) 1999 Varicella Vaccines (1 of 2 - 13+ 2-dose series) 2006 Regular Well Visit/Exam 18-64 2011 Covid-19 Vaccine (2023-2 5 season) 2024 03/24/2022, 05/07/2021, 04/16/2021 Influenza Vaccine (#1) 2024 5, 02/14/2014, 06/01/2013 DTaP/Tdap/Td Vaccine (8 - Td or Tdap) 07/04/2031 07/04/2021, 12/06/2007, 08/27/1998, Additional history exists Hepatitis B Screening Completed 01/25/1994 , 1993, 1993 HPV Vaccines Completed 09/09/2010, 04/02, 02/13/2010 Insurance [facility] Care Teams Software Engineer Web Services Relationship Specialty Start Date End Date Brenda Allen TOY DESIGNER [id number] [place] [phone] PCP - General 02/15/17
--- OUTSIDE RECORDS SUMMARY | 2024-07-09 08:15 | XMS_ITS | Referral Summary ---
Author Organization [facility] Address [address] [place] [address] Care Team Providers Care It Senior Software Engineer Java Name Role Phone Brenda Allen NP Primary Care Provider +1- [phone] Allergies Active Allergy Reactions Criticality Noted Date [...] Next Due Influenza, Trivalent, IM (MDV) 02/12/2015,2013,06/01/2013 Social History Tobacco Use Types Packs/Day Years Used Date Smoking Tobacco: Never Alcohol Use Standard Drinks/Week Comments No 0 (1 standard drink = 0.6 oz pur e alcohol) Comments Unknown Sex and Gender Information Value Date Recorded Sex Assigned at Not on file 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
[2024-07-09 08:25] VITALS: BP 106/66; PULSE 73; RESP 16; TEMP 36.8; O2SAT 99
--- NOTE | 2024-07-09 08:33 | ED_ITS ---
HPI - General Adult General Chief complaint: Upper Respiratory Infection Stated complaint: body aches,sore throat,ear ache,headache Source: patient Mode of arrival: ambulatory Limitations: no limitations History of Present Illness HPI narrative: Pt presents for evaluation of sick symptoms. Symptom onset three days ago. Symptoms include fever, sore throat, bilateral ear pain, cough, SOB, diarrhea, generalized body aches and nausea without vomiting. She has taken tylenol, ibuprofen, dayquil and nyquil for her symptoms. 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 She does not smoke. She took at home COVID/flu tests twice and testing was negative. She has a history of exercise induced asthma. Related Data Allergies Allergy/AdvReac Type Severity Reaction Status Date / Time Sulfa (Sulfonamide Allergy Unknown Hives Verified 10/13/23 14:18 Antibiotics) Review of Systems Review of Systems: CONSTITUTIONAL: Reports fever. Denies chills, or sweats. EYES: Denies visual changes, redness, or discharge. ENT: Reports sinus congestion, nasal drainage, bilateral ear pain and sore throat CARDIOVASCULAR: Denies chest pain, palpitations, or edema. RESPIRATORY: Reports cough and SOB GASTROINTESTINAL:Reports diarrhea. Denies abdominal pain, nausea, or vomiting GENITOURINARY: Denies dysuria or hematuria. SKIN: Denies rash or itching. MUSCULOSKELETAL: Reports generalized body aches NEUROLOGIC: Denies headache, numbness, dizziness, or weakness. PSYCHIATRIC: Denies anxiety or depression. [facility] Past Medical History Medical History Asthma Surgical History Surgical History History of laparoscopic appendectomy 2017 History of hernia repair 2017 Family History Family History Grandparent Hypertension Family history of elevated blood lipids Family history of cardiovascular disease Father Hypertension Social History Social History Smoking status: Never smoker Second hand tobacco smoke exposure: No Alcohol intake: current Alcohol use details: social Substance use: never Substance use type: does not use Living arrangements: alone Additional occupation/education comments: RN Gender identity (if verbalized by the patient): Female Sexual Orientation (if Verbalized by the Patient): Straight or Heterosexual Spiritual care concerns: No Exam Narrative: GENERAL: Well-appearing, well-nourished, and in no acute distress. HEAD: Normocephalic, atraumatic. EYES: PERRLA and EOMI. ENT: Nares clear, no rhinorrhea or epistaxis. Mucous membranes moist. Oropharynx without tonsillar hypertrophy exudate or other lesions. Bilateral TMs pearly roldan nonbulging NECK: Supple. No adenopathy or masses. No carotid bruits or JVD CHEST: Clear to auscultation. No respiratory distress. No wheezes rales or rhonchi HEART: Regular rate and rhythm. No murmur heard. Normal peripheral pulses. ABDOMEN: Soft, nontender, nondistended, normal active bowel sounds. EXTREMITIES: Normal range of motion. No edema. SKIN: Warm, dry, no rash. NEURO: No focal deficits. Alert and oriented x3. PSYCH: Normal mood and affect. Course Course Emergency Course: This is a 28 yr old female who presented for evaluation of sick symptoms. CXR and strep negative. Exam is consistent with viral illness. Will discharge with Zofran and Tessalon. Increase hydration. [id number] agents for symptom management. Follow up with primary provider. Go to the ER for worsening symptoms. Patient in agreement with plan of care. Level of Care: Express Care Visit Vital Signs Vital signs: Vital Signs Temperature 36.8 C 07/09/24 08:25 Pulse Rate 73 07/09/24 08:25 Respiratory Rate 16 07/09/24 08:25 Blood Pressure 106/66 07/09/24 08:25 Pulse Oximetry 99 07/09/24 08:25 Oxygen Delivery Room Air 07/09/24 08:25 Temperature 36.8 C 07/09/24 08:25 Pulse Rate 73 07/09/24 08:25 Respiratory Rate 16 07/09/24 08:25 Blood Pressure 106/66 07/09/24 08:25 Pulse Oximetry 99 07/09/24 08:25 Oxygen Delivery Room Air 07/09/24 08:25 Medical Decision Making Vital Signs Vital Signs: Vital Signs Temperature 36.8 C 07/09/24 08:25 Pulse Rate 73 02/08/25 08:25 Respiratory Rate 16 07/09/24 08:25 Blood Pressure 106/66 07/09/24 08:25 Pulse Oximetry 99 07/09/24 08:25 Oxygen Delivery Room Air 07/09/24 08:25 Temperature 36.8 C 07/09/24 08:25 Pulse Rate 73 07/09/24 08:25 Respiratory Rate 16 07/09/24 08:25 Blood Pressure 106/66 07/09/24 08:25 Pulse Oximetry 99 07/09/24 08:25 Oxygen Delivery Room Air 07/09/24 08:25 Lab Data Labs: Lab Results 07/09/24 Range/Units 08:46 POC Grp A Strep Screen Negative (Negative) Imaging Data Radiologist's impression: EXAMINATION: XR chest 2V DATE: 07/09/2024 08:44 INDICATION: Cough. TECHNIQUE: Frontal and lateral views of the chest were obtained. COMPARISON: Chest 2 view 12/13/2020 FINDINGS: There is no pneumonia, pleural effusion, or pneumothorax. The heart size is normal. IMPRESSION: 1. No acute cardiopulmonary disease. Discharge Plan Discharge Clinical Impression: Acute viral syndrome Patient Disposition: Home, Self-Care Condition: Stable Instructions: Antibiotic Form, Viral Syndrome (ED) Patient Language: [place] Prescriptions: New ondansetron 4 mg tablet,disintegrating 4 mg PO Q8H PRN (Reason: nausea and vomiting) Qty: 15 0RF benzonatate 200 mg capsule 200 mg PO TID PRN (Reason: cough) Qty: 20 0RF No Action drospirenone-ethinyl estradiol [Lupe (28)] 3-0.03 mg tablet 1 tablet PO DAILY Qty: 84 0RF lorazepam [Ativan] 1 mg tablet 1 mg PO QHS PRN (Reason: anxiety) Qty: 30 0RF Follow-up/Referrals: Mylene Jackson MD [Primary Care Provider] - Time of Disposition: 08:54
[2024-07-09 08:49] LABS: EDSTREPNEGPOS1 Negative (Negative)
== END 2024-07-09 09:01 | disposition home or self-care (01) ==
PROVIDERS: Emergency Provider Nurse Practitioner; PCP Family Medicine
DX: B34.9 Viral infection, unspecified (principal); J45.990 Exercise induced bronchospasm
CPT/HCPCS: 71046; 87081; 87880; 99213; G0463